=== PATIENT | male | born 1975 | race Caucasian/White ===

== ENCOUNTER → 2016-06-03 | Outpatient (CLI) | payer OTHER | LOC: COL.RAD 07:21 | DX: K76.0 Fatty (change of) liver, not elsewhere classified (principal); R10.11 Right upper quadrant pain; R79.89 Other specified abnormal findings of blood chemistry ==

== ENCOUNTER → 2016-08-16 | Outpatient (CLI) | payer BC | LOC: COL.RAD 07:32 | DX: K30 Functional dyspepsia (principal) | CPT/HCPCS: A9541 ==

== ENCOUNTER → 2016-11-09 | Outpatient (CLI) | payer OTHER | LOC: COL.RAD 07:53 | DX: R10.11 Right upper quadrant pain (principal); R93.2 Abnormal findings on diagnostic imaging of liver and biliary tract | CPT/HCPCS: A9537 ==

== ENCOUNTER → 2016-11-30 | Outpatient (CLI) | payer OTHER | LOC: COL.RAD 09:19 | DX: M43.06 Spondylolysis, lumbar region (principal) | CPT/HCPCS: Q9967 ==

== ENCOUNTER 2020-10-15 19:07 | Emergency (ER) | payer OTHER ==
[~2020-10-15] VITALS: Ht 175.3 cm; Wt 125.0 kg
[2020-10-15 19:18] VITALS: TEMP 101.1
[2020-10-15 20:30] LABS: BASO # 0.1 (0.0-0.2); BASO % 0.3 % (0.0-2.0); EOS # 0.1 (0.0-0.7); EOS % 0.3 % (0-4.0); GRAN # 13.7 (1.4-6.5); GRAN % 81.7 % (42.2-75.2); HEMATOCRIT 47.8 % (42.0-52.0); HEMOGLOBIN 16.8 g/dl (13.5-18.0); LYMPH # 1.4 (1.2-3.4); LYMPH % 8.3 % (20.0-51.0); MEAN CELL VOLUME 97 fl (80.0-100.0); MEAN CORPUSCULAR HEMOGLOBIN 34 pg (27.0-31.0); MEAN CORPUSCULAR HGB CONC 35 g/dl (33.0-37.0); MEAN PLATELET VOLUME 9.1 fl (7.4-10.4); MONO # 1.5 (0.1-0.6); MONO % 8.8 % (1.7-9.3); PLATELET COUNT 239 K/mm3 (130-400); RED BLOOD COUNT 4.95 M/mm3 (4.20-5.60); REDCELL DISTRIBUTION WIDTH-CV 12.6 % (11.5-14.5)
[2020-10-15 20:47] LABS: ALBUMIN 4.7 gm/dL (3.5-5.0); BILIRUBIN,TOTAL 1.5 mg/dL (0.0-1.0); C-REACTIVE PROTEIN 0.8 mg/dL (0.0-0.9); CREATININE, serum 0.84 (0.66-1.25); POTASSIUM 4.1 mmol/L (3.4-5.0); TOTAL PROTEIN 8.6 gm/dL (6.4-8.2)
[2020-10-15 23:54] VITALS: BP 148/90; PULSE 95
== END 2020-10-15 23:55 | disposition home or self-care (01) ==
LOC: COL.ER 19:07
PROVIDERS: Emergency Medicine
DX: R07.81 Pleurodynia (principal); K21.9 Gastro-esophageal reflux disease without esophagitis; I10 Essential (primary) hypertension; K22.70 Barrett's esophagus without dysplasia; Z98.890 Other specified postprocedural states; Z79.899 Other long term (current) drug therapy
CPT/HCPCS: J7030; Q9967

== ENCOUNTER → 2020-10-15 | Outpatient (CLI) | payer OTHER ==
--- NOTE | 2020-10-01 08:41 | NUR ---
CELINA WITH CALL BACK NUMBER
[2020-10-15] VITALS (13 sets, daily range): BP systolic 125–179; BP diastolic 81–119; PULSE 70–83
[~2020-10-15] VITALS: Ht 175.3 cm; Wt 127.5 kg
[~2020-10-15] MED LIST: EPA FISH OIL1 SGL PO; LEXAPRO 10MG10 MG PO; NATURAL MAGNES200 MG PO; NORVASC 5MG5 MG/TAB PO; PHARMASSURE CHE30 MG PO; PROBIOTIC BLEN1 EACH PO; PROTONIX 40MG T40 MG PO; SYNTHROID0.05 MG/TA PO; ZYRTEC 10MG10 MG PO; vitamin d3 PO
[2020-10-15 07:51] LABS: PROTHROMBIN TIME 11.2 SECONDS (9.7-12.8)
--- NOTE | 2020-10-15 08:10 | NUR ---
PT WAS BROUGHT INOT CT AND POSITIONED ON TABLE. MONITORING EQUIPMENT PLACED.
== END ==
LOC: COL.RAD 10-06 09:00
PROVIDERS: Internal Medicine Gastroenterology
DX: K76.0 Fatty (change of) liver, not elsewhere classified (principal); R74.8 Abnormal levels of other serum enzymes; R60.0 Localized edema
CPT/HCPCS: J2250; J3010

== ENCOUNTER → 2020-10-21 | Outpatient (CLI) | payer OTHER | LOC: COL.RAD 13:15 | DX: M48.02 Spinal stenosis, cervical region (principal); G95.89 Other specified diseases of spinal cord ==

== ENCOUNTER → 2021-07-21 | Outpatient (CLI) | payer OTHER | LOC: COL.RAD 08:15 | DX: K75.81 Nonalcoholic steatohepatitis (NASH) (principal); K21.9 Gastro-esophageal reflux disease without esophagitis; K22.70 Barrett's esophagus without dysplasia; R74.8 Abnormal levels of other serum enzymes ==